=== PATIENT | male | born 1960 | race Caucasian/White ===

== ENCOUNTER → 2016-06-10 | Day surgery (SDC) | payer BC ==
--- NOTE | 2016-06-09 13:33 | TH ---
cc: KAROL DORADO M.D. DATE 06/09/2016 DATE OF 1960 INDICATIONS This is a 55-year-old male who is status post resection of a large circumference lesion located on the right chest. The patient had had a delay of reconstruction. PAST MEDICAL HISTORY The patient's past medical history is otherwise remarkable for allergies for which she takes Flomax OTHER MEDICATIONS 1. Triamcinolone 2. Ibuprofen SOCIAL HISTORY He is a two pack a day smoker for the last 35 years. PHYSICAL EXAM CONSTITUTIONAL: General appearance. The patient is a well-developed male in no acute distress. Body habitus is within normal limits. There appear to be no deformities. Appears to have attention to grooming. HEENT: Eyes Conjunctivae and lids are within normal anatomical limits. The pupils are reactive to light and accommodation, size, and symmetry. There is no evidence of exudate, hemorrhage, or vessel change. Ears, mouth, nose, and throat The external inspection of the ears and nose fails to demonstrate any pathology, scars, lesions, or masses. Nasal mucosa, septum, and turbinates appear to be well hydrated as well as the lips and gums. No evidence of masses in the hypopharynx or submental area. RESPIRATORY: The patient shows no evidence of intercostal refractions. Otherwise, lungs are clear to auscultation without any abnormal sounds or rubs. CARDIOVASCULAR: The patient has a normal heart rate and rhythm. There is no evidence of noticed carotid bruits. Femoral pulses and pedal pulses in extremities are also within normal limits. GASTROINTESTINAL/ABDOMEN: Soft with no evidence of masses or tenderness. Unable to palpate the liver or spleen. No evidence of hernia. MUSCULOSKELETAL: Appears to be reasonable range of motion on the head, neck, spine, ribs, pelvis, right upper extremity, left upper extremity, right lower extremity, and left lower extremity. The muscle strength and tone appears to be equal and within accepted limits. SKIN: There is a lesion located on the right chest defect of about 8 x 7 cm. No rashes, or ulcers on the trunk, back, and extremities. NEUROLOGICAL: Examination is grossly normal. PSYCHIATRIC: The patient appears to have good orientation of time, place, and person. Does not appear to have any mood effects of depression, anxiety, or agitation. PLAN Proceed with a split-thickness skin graft after irrigation and debridement. MD DANETTE Chan /1:12 PM /1:20 PM
[~2016-06-10] MED LIST: ACETAMINOPHEN 1000 MG/100 ML VIAL IV ONE; ACETAMINOPHEN/HYDROcodone 325 MG/5 MG TAB ONE; AUGM875 PO; BACITRACIN IM FOR SOLN 50,000 UNIT VIAL ONE; BUPIVACAINE/EPINEPHRINE 0.25% 50 ML VIAL ONE; LACTATED RINGER'S 1,000 ML BAG IV ONE; LACTATED RINGER'S 1000 ML INJ 1,000 ML ONE; LIDOCAINE 1%/EPINEPHrine 1:100,000 SOLN 30 ML VIAL ONE; LORT5TAB PO; MIDAZOLAM HCL 2 MG/2 ML VIAL ONE; MINERAL OIL 10 ML VIAL ONE; PROPOFOL 200 MG/20 ML AMP IV ONE; SODIUM CHLORIDE 0.9% 20 ML VIAL ONE; TAMS0.4C67 PO; ceFAZolin INJ 1,000 MG VIAL ONE
--- NOTE | 2016-06-10 15:52 | TN ---
cc: LOUIS DAVILA DATE OF SURGERY: 06/10/2016. 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 PROCEDURE PERFORMED: 1. Removal of close margin from 10 o'clock to 1 o'clock going through the 12 o'clock margin. Excision of margins was 7cm x 2cm. 2. Debridement of now defect of 12 x 9 cm. 3. Split-thickness skin graft. SURGEON: Louis Davila MD, FACS. ANESTHESIA: LMA general. Total of 60 mL of 1% lidocaine with epinephrine mixed with 0.25% Marcaine at a 2:1 ratio. COMPLICATIONS: None. 1. Removal of close margin from 10 o'clock to 1 o'clock going through the 12 o'clock margin. Excision of margins was 7cm x 2cm. 2. Debridement of now defect of 12 x 9 cm. 3. Split-thickness skin graft. SURGEON: Louis Davila DESCRIPTION OF THE PROCEDURE IN DETAIL: 1. Removal of close margin from 10 o'clock to 1 o'clock going through the 12 o' clock margin. Excision of margins was 7cm x 2cm. 2. Debridement of now defect of 12 x 9 cm. 3. Split-thickness skin graft totaling 108 sq cm He was properly consented, marked properly AND anesthetized. the skin was sterilized with Betadine solution and sterile draping applied. A previous accelular dermal matrix the patient had as a temporizing factor was removed. Proper debridement was carried out down to viable tissue and nonbloody tissue. Irrigation with a pulse lavage with antibiotic solution for a total of 1000 mL of warm saline was carried out to this defect located in the right chest. The defect was 12x 9 cm. After assuring meticulous hemostasis, a split-thickness skin graft was harvested from the anterior right thigh 13,000 of an inch and meshed 1:1.5 and placed in the recipient and secured in place utilizing surgical chloé. A tie-over dressing was applied utilizing Garland foam Xeroform gauze and secured with chloé. Absorbent dressings were applied thereafter. Overall the patient tolerated the procedure well and was awakened and extubated in the operating room and transferred back to the postanesthesia care unit in stable condition. No complications appreciated. The patient the procedure fairly well. MD NICOLE Chan/KEISHA /2:04 PM /3:40 PM [facility]
== END | disposition home or self-care (01) ==
LOC: ESDC 10:17
PROVIDERS: ATTEND Plastic Surgery
DX: C44.599 Other specified malignant neoplasm of skin of other part of trunk (principal); B96.20 Unspecified Escherichia coli [E. coli] as the cause of diseases classified elsewhere; Z48.817 Encounter for surgical aftercare following surgery on the skin and subcutaneous tissue; L98.8 Other specified disorders of the skin and subcutaneous tissue
CPT/HCPCS: 00400; 11042; 11045; 15100; 15101; 86403; 87070; 87077; 87186; 87205; 88305; J0131; J0690; J2250; J3010; J7120